=== PATIENT | male | born 1950 | race Caucasian/White ===

== ENCOUNTER → 2019-12-26 | Outpatient (CLI) | payer BC, OTHER ==
[~2019-12-26] MED LIST: COLC0.6T53 PO; LANS30CA PO; LISI20TA PO; METO100T2 PO; SIMV40TA4 PO
--- NOTE | 2019-12-26 11:43 | Diagnostic Imaging Report ---
PROCEDURE: CT chest without contrast. TECHNIQUE: Multiple contiguous axial images were obtained through the chest without the use of intravenous contrast. Auto Exposure Controls were utilized during the CT exam to meet ALARA standards for radiation dose reduction. DATE: December 26, 2019. COMPARISON: None. INDICATION: 69-year-old male, pulmonary nodule. PROCEDURE: Axial noncontrasted CT images of the chest. Noncontrasted limits the evaluation of the mediastinum and vascular structures. FINDINGS: There is a noncalcified right lower lobe pulmonary nodule measuring 8 mm in size on axial image 120. There is a noncalcified left lower lobe pulmonary nodule on axial image 129 measuring 7 mm in size and a more peripherally located noncalcified 7 mm left lower lobe pulmonary nodule on the same image. There is a left upper lobe pulmonary nodule on axial image 85 which measures 5 mm in size. There is no additional focal airspace consolidation. 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 There are minimal upper lobe findings of emphysema. There is no pneumothorax. There is no pleural effusion. The heart is not enlarged. There is no pericardial effusion. There are coronary artery calcifications. There are additional areas of atherosclerotic disease. There is no identified abnormally enlarged mediastinal or axillary lymph node which meets CT size criteria for adenopathy. The patient is status post cholecystectomy. There are multilevel degenerative changes of the spine. There is a chronic right fourth rib deformity relating to sequela of healed remote prior fracture. There is no identified acute bony abnormality. IMPRESSION: 1. Subcentimeter pulmonary nodules measuring up to maximally 8 mm in size. Comparison imaging is not available. Recommend followup CT chest in 3-6 months to assess for stability. 2. Saber-sheath trachea with mild upper lobe findings of emphysema. 3. No acute cardiopulmonary abnormality. Dictated by: Dictated on workstation # [id number]
== END ==
LOC: RAD FS 10:31
PROVIDERS: ATTEND Nurse Practitioner
DX: J43.9 Emphysema, unspecified (principal); J39.8 Other specified diseases of upper respiratory tract; R91.8 Other nonspecific abnormal finding of lung field
CPT/HCPCS: 71250

== ENCOUNTER → 2020-09-01 | Outpatient (CLI) | payer MEDICARE, OTHER ==
[~2020-09-01] MED LIST changes: +CATHETER FLUSH 10 ML SYR IV PRN; +HOLD METFORMIN - RECEIVED CONTRAST 20 ML VIAL IV SCH; +IOHEXOL 350 MG/ML 100 ML (OMNIPAQUE 350) VIAL IV ONE; +NS 100 ML (IVPB) BAG IV ONE
[2020-09-01 09:56] LABS: POTASSIUM 4.4 MMOL/L (3.6-5.0); SODIUM 139 MMOL/L (135-145)
[2020-09-01 09:57] LABS: BUN/CREATININE RATIO 11; CARBON DIOXIDE 24 MMOL/L (21-32); CHLORIDE 106 MMOL/L (98-107); CREATININE SERUM 0.87 MG/DL (0.60-1.30); GFR ESTIMATED > 60
[2020-09-01 09:58] LABS: GLUCOSE 101 MG/DL (70-105)
[2020-09-01 09:59] LABS: ALANINE AMINOTRANSFERASE 15 U/L (0-55); ALBUMIN 3.9 GM/DL (3.2-4.5); ALKALINE PHOSPHATASE 98 U/L (40-136); BILIRUBIN,TOTAL 0.4 MG/DL (0.1-1.0); CALCIUM 9.2 MG/DL (8.5-10.1); TOTAL PROTEIN 6.9 GM/DL (6.4-8.2)
--- NOTE | 2020-09-01 12:24 | Diagnostic Imaging Report ---
PROCEDURE: CT chest with contrast only. TECHNIQUE: Multiple contiguous axial images were obtained through the chest after administration of intravenous contrast. Auto Exposure Controls were utilized during the CT exam to meet ALARA standards for radiation dose reduction. INDICATION: Pulmonary nodules. The previous CT chest exam performed on 12/26/2019 noted small subcentimeter pulmonary nodules in both lungs. Specifically, there was a 7 mm nodule along the periphery of the left lung base and an 8 mm nodule in the left lung base at the same level. There was also a 8 mm pleural-based nodule along the medial aspect of the right lower lobe. A 5-6 mm nodule is also seen in the left upper lung. All those nodules are again evident on this study and do not appear to have changed significantly in size or appearance. Consequently they are unlikely related to an aggressive neoplastic process. No other parenchymal lung mass is identified. There are emphysematous changes involving both lungs but there is no sign of failure, pneumonia or pleural effusion. The heart size is within normal limits and stable when compared to the prior study. Coronary artery calcifications are again noted. The aorta is not abnormally dilated and there is no sign of dissection. The pulmonary arteries were not fully opacified and consequently difficult to assess for a pulmonary embolus. There is no defect within the pulmonary arteries to indicate a pulmonary embolus however. There is no mediastinal or hilar adenopathy. The thyroid gland is generally unremarkable. The sections through the upper abdomen failed to show any sign of an acute abnormality. As noted on the prior exam the gallbladder is surgically absent. The bone windows show no sign of a fracture or of a destructive lesion. IMPRESSION: 1. The small pulmonary nodules seen previously appears stable. Consequently these findings are unlikely related to an aggressive neoplastic process. I would recommend that a short-term (six month) follow-up CT chest exam be obtained for continued evaluation. 2. There is no acute cardiopulmonary abnormality noted. 3. There are emphysematous changes involving both lungs and there is coronary artery disease. Dictated by: Dictated on workstation # [id number]
== END ==
LOC: RAD FS 09:10
PROVIDERS: ATTEND Nurse Practitioner
DX: Z00.00 Encounter for general adult medical examination without abnormal findings (principal); J43.9 Emphysema, unspecified; R91.8 Other nonspecific abnormal finding of lung field; I25.10 Atherosclerotic heart disease of native coronary artery without angina pectoris
CPT/HCPCS: 36415; 71260; 80053